=== PATIENT | female | born 1995 | race Caucasian/White ===

== ENCOUNTER 2022-05-01 14:07 | Emergency (ER) | payer BC, SELFPAY ==
[2022-05-01 14:15] VITALS: BP 109/72; PULSE 85; RESP 18; TEMP 36.5; O2SAT 100; BMI 21.6
--- NOTE | 2022-05-01 14:21 | ED_ITS ---
HPI - Abdominal Pain General Time Seen by Provider: 14:21 Date Seen: 05/01/22 Chief Complaint: Abdominal Pain Stated Complaint: Possible Appendicitis Time Seen by Provider: 05/01/22 14:21 Source: patient, RN notes reviewed, old records reviewed and other (Urgent Care nurse practitioner) Mode of arrival: ambulatory Limitations: no limitations History of Present Illness HPI narrative: Lolis is a very pleasant 26-year-old female otherwise healthy who currently works at [employer] [facility] [employer] who comes to the emergency room for urgent care with symptoms of 1 week of diarrhea. Patient was noted to have the onset of diarrhea not associated with a fever or vomiting a week ago. It does not have any blood in it. She denies recent travel, recent camping, recent antibiotic use or exposure to any new known ill individuals. She was seen at urgent care today and during the exam with palpation of the abdomen Lolis had right lower quadrant discomfort and was sent to the ER for evaluation for possibility of appendicitis. Patient's LMP was approximately 2-3 weeks ago. She notes that she has no pain when sitting or moving. The only discomfort she noted was when she was lying flat and the examiner felt her abdomen. This has not happened to her in the past. She has no history of autoimmune disorders. In regards to , she is on control and had a period 2-3 weeks ago. Patient also tested herself for COVID this morning and was negative. Related Data Home Medications Medication Instructions Recorded Confirmed norgestimate 0.25 mg-ethinyl 1 tab PO 05/01/22 05/01/22 estradiol 35 mcg tablet (Sprintec (28)) Allergies Allergy/AdvReac Type Severity Reaction Status Date / Time amoxicillin Allergy Rash Verified 05/01/22 13:22 Penicillins Allergy Rash Verified 05/01/22 13:22 Review of Systems Const Denies: fever, chills or fatigue ENMT Denies: throat pain or difficulty swallowing Cardio Denies: chest pain, swelling of feet/ankles or shortness of breath with exertion Resp Denies: shortness of breath or cough GI Reports: abdominal pain (Only elicited during exam. No pain at rest) and diarrhea; Denies: nausea, vomiting, difficulty swallowing or blood in stool Denies: painful urination or urinary frequency Musculo Denies: back pain Neuro Denies: headache Endo Denies: fatigue PFSH PFSH Social History Smoking Status: Current every day smoker What tobacco products do you use: betty reina Smoking packs per day: 0.5 Smoking cigarettes per day: 10.0 Second hand tobacco smoke exposure: No How often do you have a drink containing alcohol: monthly or less How many standard drinks containing alcohol do you have on a typical day: 1 or 2 How often do you have six or more drinks on one occasion: Never AUDIT-C Alcohol total score: 1 Non-prescribed substance use: denies use Exam Narrative: Exam Narrative: Patient is alert and oriented. Very pleasant and nontoxic in appearance Bright-eyed. Moving neck without difficulty Heart with regular rate and rhythm. Lungs are clear in all lung boyce. No CVA tenderness with percussion Abdomen is soft and nontender. No pain with palpation of the abdomen. No peritoneal signs Lower extremities without edema Straight leg raise internal external rotation of the hip bilaterally without increasing discomfort. Const: Vital Signs, click to edit/add: Vital Signs - 24 hr 05/01/22 14:15 05/01/22 15:08 Temperature 97.7 F 97.8 F Pulse Rate [Right Pulse Oximeter] 85 81 Respiratory Rate 18 24 Blood Pressure [Ri ght Upper Arm] 109/72 109/59 L Pulse Oximetry 100 100 Oxygen Delivery Me thod Room Air Room Air Documenting provider has reviewed patient's vital signs: yes Course Course Hospital Course: At this time I have very low suspicion of appendicitis given patient's exam. We will check electrolytes as well as CBC and a CRP as I am more likely to entertain colitis, diverticulitis, viral enteritis or a gastritis with the symptoms and exam. Patient is requesting no IV at this time but is willing to do an IV if we would need to do a CT in the future. Vital Signs Vital signs: Initial Vital Signs Temperature 97.7 F 05/01/22 14:15 Temperature Source Temporal Artery Scan 05/01/22 14:15 Pulse Rate 85 05/01/22 14:15 Pulse Rhythm 05/01/22 14:15 Respiratory Rate 18 05/01/22 14:15 Blood Pressure 109/72 05/01/22 14:15 Blood Pressure Mean 84 05/01/22 14:15 Blood Pressure Position Sitting 05/01/22 14:15 Pulse Oximetry 100 05/01/22 14:15 Oxygen Delivery Method 05/01/22 14:15 Vital Signs Temperature 97.7 F 05/01/22 14:15 Pulse Rate 85 05/01/22 14:15 Respiratory Rate 18 05/01/22 14:15 Blood Pressure 109/72 05/01/22 14:15 Pulse Oximetry 100 05/01/22 14:15 Oxygen Delivery Method 05/01/22 14:15 Temperature 97.8 F 05/01/22 15:08 Pulse Rate 81 05/01/22 15:08 Respiratory Rate 24 05/01/22 15:08 Blood Pressure 109/59 L 05/01/22 15:08 Pulse Oximetry 100 05/01/22 15:08 Oxygen Delivery Method 05/01/22 15:08 MDM - Abdominal Pain MDM Narrative Medical decision making narrative: 1. Diarrhea-patient has no pain with abdominal palpation. I did have her jump up and down a few times and she has absolutely no peritoneal signs. At this time her white count is reassuring although her CRP is minimally elevated at 1.8. We did talk about pros and cons/risks and benefits of CT imaging. At this time I do not recommend CT imaging as I believe that the radiation risk would outweigh any benefits. This is most likely a self-limiting illness. However, as patient works in a senior care I would want to check for C diff and do a stool culture. She was unable to provide a sample at this time and thus we will be sending home laboratory equipment so that she can collect a stool sample in return that to us. I did speak specifically to the worry about appendicitis. Of course this could be early appendicitis but given the exam I think that this is only a small possibility. I do think we should continue to monitor at this time. We spoke about worsening symptoms that would trigger further imaging. This would include sudden onset of fever, increasing abdominal pain especially in the right lower quadrant, or the onset of vomiting. It would also include other new symptoms evaluated by a physician. Does agree to return for any of those symptoms would occur. 2. Disposition-patient will be discharged home. Return stool samples. Return as needed for previously discussed new symptoms or worsening of cold symptoms. At this time hydration appears to be normal with no evidence of ketones in urine. Medical Records Attestation: I reviewed the patient's medical records. Lab Data Attestation: I reviewed the patient's lab results. Labs: Lab Results 05/01/22 05/01/22 05/01/22 Range/Units 14:45 14:52 14:52 WBC 9.79 (4.50-11.00) K/uL RBC 4.52 (4.00-5.20) m/uL Hgb 14.0 (12.0-16.0) gm/dL Hct 42.1 (33.0-51.0) % MCV 93 (80-100) fL MCH 31 (26-34) pg MCHC 33 (32-36) gm/dL RDW Coeff of Mateo 11.5 (11.5-15.5) % Plt Count 352 (140-440) K/uL Neut % (Auto) 66.7 (42.0-72.0) % Lymph % (Auto) 22.2 (20-44) % [place] % (Auto) 7.5 (0.0-11.0) % Eos % (Auto) 2.8 (0.0-7.0) % Baso % (Auto) 0.2 (0.0-3.0) % Neut # (Auto) 6.54 (1.7-7.0) K/uL Lymph # (Auto) 2.17 (0.90-2.90) K/uL [place] # (Auto) 0.70 (0.00-0.90) K/UL Eos # (Auto) 0.27 (0.00-0.50) K/uL Baso # (Auto) 0.02 (0.00-0.30) K/uL Abs Immat Gran (auto) 0.06 (0.00-0.30) K/uL Imm/Tot Granulo (auto) 0.6 % Sodium 137 (135-149) mmol/L Potassium 4.3 (3.6-5.1) mmol/L Chloride 106 (96-114) mmol/L Carbon Dioxide 23 (20-32) mmol/L BUN 11 (5-24) mg/dL Creatinine 0.6 (0.5-1.5) mg/dL Estimated Creat Clear 114.35 Estimated GFR 128 ml/min Glucose 83 (60-115) mg/dL Calcium 10.1 (8.4-10.6) mg/dL Magnesium 2.1 (1.5-2.6) mg/dL Total Bilirubin 0.3 (0.1-1.5) mg/dL AST 25 (12-35) U/L ALT 27 (4-35) U/L Alkaline Phosphatase 66 (40-150) U/L C-Reactive Protein 1.8 H (0.5-1.0) mg/dL Total Protein 7.9 (6.0-8.3) g/dL Albumin 4.9 (3.3-5.0) g/dL Amylase 111 H (18-89) U/L Lipase 93 (23-300) U/L Urine Color Yellow (Yellow) Urine Appearance Clear (Clear) Urine pH 6.0 (5.0-8.5) Ur Specific Dixie 1.025 (1.000-1.030) Urine Protein Negative (Negative) Urine Glucose (UA) Negative (Negative) Urine Ketones Negative (Negative) Urine Blood Negative (Negative) Urine Nitrite Negative (Negative) Urine Bilirubin Negative (Negative) Urine Urobilinogen 0.2 (0.2-1.0) Ur Leukocyte Esterase 1+ A (Negative) Urine RBC 0-2 (0-2) Urine WBC 2-5 (0-5) Ur Squamous Epith Cells Many A (None-Few) Urine Bacteria Few A (None) Discharge Plan Discharge Clinical Impression: Diarrhea Patient Disposition: Home, Self-Care Condition: Unchanged Additional Instructions: Recommend returning for onset of fever, increasing pain at rest, vomiting. Otherwise please return your stool samples for testing. Return as needed. Prescriptions: No Action norgestimate-ethinyl estradiol [Sprintec (28)] 0.25-35 mg-mcg tablet 1 tab PO Label Comments: TAKE ONE TABLET BY MOUTH ONE TIME DAILY Follow Up/Referrals: Provider,Not a Local [Primary Care Provider] - Stand Alone Forms: [employer] Info Instructions
[2022-05-01 14:54] LABS: Appearance Urine Clear (Clear); Bilirubin Urine Negative (Negative); Blood Urine Negative (Negative); Color Urine Yellow (Yellow); Glucose Urine Negative (Negative); Ketones Urine Negative (Negative); Leukocyte Esterase Urine 1+ (Negative); Nitrite Urine Negative (Negative); Protein Urine Negative (Negative); Specific Gravity Urine 1.025 (1.000-1.030); Urobilinogen Urine 0.2 (0.2-1.0)
[2022-05-01 15:00] LABS: Basophils Absolute Auto 0.02 K/uL (0.00-0.30); Basophils Percent Auto 0.2 % (0.0-3.0); Eosinophils Absolute Auto 0.27 K/uL (0.00-0.50); Eosinophils Percent Auto 2.8 % (0.0-7.0); Hematocrit 42.1 % (33.0-51.0); Immature Granulocytes Abs Auto 0.06 K/uL (0.00-0.30); Immature Granulocytes Pct Auto 0.6 %; Lymphocytes Absolute Auto 2.17 K/uL (0.90-2.90); Lymphocytes Percent Auto 22.2 % (20-44); Mean Corpuscular HGB Conc 33 gm/dL (32-36); Mean Corpuscular Hemoglobin 31 pg (26-34); Mean Corpuscular Volume 93 fL (80-100); Monocytes Percent Auto 7.5 % (0.0-11.0); Neutrophils Absolute Auto 6.54 K/uL (1.7-7.0); Neutrophils Percent Auto 66.7 % (42.0-72.0); Platelet Count* 352 K/uL (140-440); RDW Coefficient of Variation % 11.5 % (11.5-15.5); Red Blood Count 4.52 m/uL (4.00-5.20); White Blood Count* 9.79 K/uL (4.50-11.00)
[2022-05-01 15:02] LABS: Slide Review Reflex No
[2022-05-01 15:06] LABS: Bacteria Urine Few; RBC Urine 0-2 (0-2); Squamous Epithelial Cell Urine Many (None-Few)
[2022-05-01 15:08] VITALS: BP 109/59; PULSE 81; RESP 24; TEMP 36.6; O2SAT 100
[2022-05-01 15:23] LABS: Albumin* 4.9 g/dL (3.3-5.0); Chloride* 106 mmol/L (96-114)
[2022-05-01 15:24] LABS: Potassium* 4.3 mmol/L (3.6-5.1); Sodium* 137 mmol/L (135-149)
[2022-05-01 15:26] LABS: Amylase* 111 U/L (18-89); Carbon Dioxide* 23 mmol/L (20-32); Creatinine* 0.6 mg/dL (0.5-1.5); Est. Creatinine Clearance* 114.35; Estimated Glomerular Filt Rate 128 ml/min
[2022-05-01 15:27] LABS: Alanine Aminotransferase* 27 U/L (4-35); Alkaline Phosphatase* 66 U/L (40-150); Aspartate Amino Transferase* 25 U/L (12-35); Bilirubin Total* 0.3 mg/dL (0.1-1.5); Blood Urea Nitrogen* 11 mg/dL (5-24); Glucose* 83 mg/dL (60-115); Lipase* 93 U/L (23-300); Total Protein* 7.9 g/dL (6.0-8.3)
[2022-05-01 15:28] LABS: Calcium* 10.1 mg/dL (8.4-10.6); Magnesium* 2.1 mg/dL (1.5-2.6)
[2022-05-01 15:30] LABS: C Reactive Protein* 1.8 mg/dL (0.5-1.0)
--- NOTE | 2022-05-03 19:03 | ED.NURSE ---
Patient calling re: urine culture report. Wants to know if it requires treatment. Mixed sally, no further workup. No treatment at this time. Did remind patient that Dr. Quiroga recommended stool samples be dropped off for evaluation. Patient denies further questions or concerns at this time.
== END 2022-05-01 16:10 | disposition home or self-care (01) ==
PROVIDERS: Emergency Provider Family Medicine
DX: R19.7 Diarrhea, unspecified (principal)
CPT/HCPCS: 36415; 80053; 81001; 82150; 83690; 83735; 85025; 86140; 87045; 87046; 87086; 87427; 87493; 99283; 99284

== ENCOUNTER 2023-08-29 02:31 | Outpatient (CLI) | payer BC, SELFPAY | END 2023-08-29 02:32 | disposition home or self-care (01) | LOC: AMB 08-30 09:31 | PROVIDERS: Visit Provider Family Medicine | DX: S09.90XA Unspecified injury of head, initial encounter (principal); Y04.2XXA Assault by strike against or bumped into by another person, initial encounter; Y92.009 Unspecified place in unspecified non-institutional (private) residence as the place of occurrence of the external cause | CPT/HCPCS: A0998 ==

== ENCOUNTER 2024-04-17 10:12 | Outpatient (CLI) | payer BC, SELFPAY ==
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
== END 2024-04-17 10:13 | disposition home or self-care (01) ==
PROVIDERS: Visit Provider Obstetrics & Gynecology
DX: R68.82 Decreased libido (principal); R10.2 Pelvic and perineal pain
CPT/HCPCS: 84270; 84402; 84403; 84443

== ENCOUNTER 2025-03-07 15:54 | Outpatient (CLI) | payer BC, SELFPAY | END 2025-03-07 15:55 | disposition home or self-care (01) | PROVIDERS: Visit Provider Registered Nurse | DX: N91.1 Secondary amenorrhea (principal) | CPT/HCPCS: 82670; 83001; 83498; 84146; 84270; 84402; 84403; 84443 ==